=== PATIENT | female | born 1975 | race Caucasian/White ===

== ENCOUNTER 2017-09-21 21:42 | Emergency (ER) | payer OTHER ==
[~2017-09-21] VITALS: Ht 162.6 cm; Wt 148.8 kg
[2017-09-21 21:49] VITALS: BP 156/100
--- NOTE | 2017-09-21 21:56 | NUR ---
PT RETURNED TO LOBBY
--- NOTE | 2017-09-21 22:06 | NUR ---
PT TAKEN TO BED 1
--- NOTE | 2017-09-21 22:11 | NUR ---
42 Y/O F W/C/O RT KNEE PAIN, S/P HEARD A POP WHILE WALKING. PT TOOK ADVIL FOR PAIN. SKIN WARM, CAP REFILL LESS THAN 3. PAIN 11/20.MED HX: NONE, ER MADE AWARE.
--- NOTE | 2017-09-21 22:25 | NUR ---
X-Ray at bedside.
[2017-09-21] MEDS ORDERED: HYDROcodone/APAP 5/325 MG 1 TAB TAB PO ONE (23:10)
[2017-09-21] MEDS ORDERED: KETOROLAC 30 MG/ML VIAL IM ONE (23:10)
[2017-09-21 23:45] VITALS: BP 148/86
--- NOTE | 2017-09-21 23:45 | NUR ---
Patient discharged with v/s stable. Written and verbal after care instructions given and explained. Patient alert, oriented and verbalized understanding of instructions. Wheel Chair Assisted with by caregiver. All questions addressed prior to discharge. ID band removed. Patient advised to follow up with PMD. Rx of NAPROSYN, AND NORCO given. Patient educated on indication of medication including possible reaction and side effects. Opportunity to ask questions provided and answered.
== END 2017-09-21 23:45 | disposition home or self-care (01) ==
LOC: MED 21:42
DX: S83.91XA Sprain of unspecified site of right knee, initial encounter (principal); Z98.84 Bariatric surgery status; X50.1XXA Overexertion from prolonged static or awkward postures, initial encounter; Y93.89 Activity, other specified; Y99.8 Other external cause status; Y92.89 Other specified places as the place of occurrence of the external cause
CPT/HCPCS: 73562; 96372; 99284; J1885; Q0092